=== PATIENT | female | born 1970 | race Caucasian/White ===

== ENCOUNTER 2020-01-19 15:07 | Emergency (ER) | payer MEDICAID ==
--- NOTE | 2020-01-19 15:49 | EDM.PDOC ---
ED HPI GENERAL MEDICAL PROBLEM - General Stated Complaint: achy Time Seen by Provider: 01/19/20 15:07 Source of Information: Reports: Patient History Limitations: Reports: No Limitations - History of Present Illness INITIAL COMMENTS - FREE TEXT/NARRATIVE: Pt. presents to ER with complaints of sinus congestion, fever, ear fullness, and facial pain for the past several days. She states that she has been having issues with generalized congestion for the past several weeks, and states that the facial pain and escalation in symptoms started about 4 days ago. Pt. has a longstanding history of what sounds like allergic rhinitis. She states that she has been taking antihistamines and has been using inhaled nasal corticosteroid but states "it never works". She states that she has not had a flu shot. No nausea, vomiting, or diarrhea. 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 Pt. states that she is a non-smoker. Pt. has been in to clinic approx. 3 times since September and treated for acute sinus infection. She states that most of the time the medications havent worked. She has not seen ENT or asphalt paving superintendent. She states that her symptoms often worsen in the early spring, but she states that the fever and facial pain is new. Onset: Today Onset Date: 01/15/20 Location: Reports: Head, Face Associated Symptoms: Reports: Cough, Headaches, Malaise. Denies: Confusion, Chest Pain Treatments PUBLIC RELATIONS STUDIES DIRECTOR: Reports: Acetaminophen, NSAIDS, Other (see below) ( antihistimines, nasal steroids, decongestants, none of which work.) - Related Data Allergies Allergy/AdvReac Type Severity Reaction Status Date / Time No Known Allergies Allergy Verified 03/12/15 12:33 Home Meds: Home Meds . [No Known Home Meds] 03/12/15 [History] ED ROS GENERAL - Review of Systems Review Of Systems: See Below Constitutional: Reports: No Symptoms HEENT: Reports: Rhinitis, Sinus Problem, Throat Pain, Other (ear fullness) Respiratory: Reports: Cough. Denies: Shortness of Breath, Wheezing, Sputum Cardiovascular: Reports: No Symptoms Endocrine: Reports: No Symptoms GI/Abdominal: Reports: No Symptoms : Reports: No Symptoms Musculoskeletal: Reports: No Symptoms Skin: Reports: No Symptoms Neurological: Reports: No Symptoms Psychiatric: Reports: No Symptoms Hematologic/Lymphatic: Reports: No Symptoms Immunologic: Reports: No Symptoms ED EXAM, GENERAL - Physical Exam Exam: See Below Exam Limited By: No Limitations General Appearance: Alert, WD/WN, No Apparent Distress Eye Exam: Bilateral Eye: EOMI, Normal Fundi, Normal Inspection, Periorbital Changes Ears: Normal External Exam, Normal Canal, Hearing Grossly Normal, Normal TMs Ear Exam: Bilateral Ear: Auricle Normal, Canal Normal, TM normal Nose: Normal Inspection, Nasal Tenderness, Nasal Drainage, Other (frontal and maxillary tenderness on palpation. ) Throat/Mouth: Normal Inspection, Normal Lips, Normal Teeth, Normal Gums, Normal Oropharynx, Normal Voice, No Airway Compromise Head: Atraumatic, Normocephalic Neck: Normal Inspection, Supple, Non-Tender, Full Range of Motion Respiratory/Chest: No Respiratory Distress, Lungs Clear, Normal Breath Sounds, No Accessory Muscle Use, Chest Non-Tender Cardiovascular: Normal Peripheral Pulses, Regular Rate, Rhythm, No Edema, No Gallop, No JVD, No Murmur Peripheral Pulses: 4+: Radial (L) Back Exam: Normal Inspection, Full Range of Motion Extremities: Normal Inspection, Normal Range of Motion, Non-Tender, No Pedal Edema, Normal Capillary Refill Neurological: Alert, Oriented, CN II-XII Intact, Normal Cognition, Normal Gait, Normal Reflexes, No Motor/Sensory Deficits Psychiatric: Normal Affect, Normal Mood Skin Exam: Warm, Dry, Intact, Normal Color, No Rash Lymphatic: No Adenopathy Course - Orders/Labs/Meds Orders: Active Orders 24 hr Category Date Time Status INFLUENZA A+B AG SCREEN [RM] Stat Lab 01/19/20 15:27 Ordered Departure - Departure Time of Disposition: 15:57 Disposition: Home, Self-Care 01 Clinical Impression: Sinusitis - Discharge Information - My Orders Last 24 Hours: My Active Orders 01/19/20 15:27 INFLUENZA A+B AG SCREEN [RM] Stat - Assessment/Plan Last 24 Hours: My Active Orders 01/19/20 15:27 INFLUENZA A+B AG SCREEN [RM] Stat Plan: Follow-up in clinic in 10-14 days to ensure resolution of infection. It appears that she is not following up, so it is unclear it the infection as actually clearing. Advised getting a referral to [facility] from Dr. Fletcher. Was started on a course of augmentin and a medrol dose pack. Drink plenty of fluids. Continue with inhaled nasal steroid, antihistimines, and sudafed. All questions were answered.
== END 2020-01-19 16:05 | disposition home or self-care (01) ==
LOC: VM.ED 15:07
DX: J32.9 Chronic sinusitis, unspecified (principal)
CPT/HCPCS: 87804; 87804-59; 99283

== ENCOUNTER 2021-04-27 20:37 | Emergency (ER) | payer MEDICAID ==
[2021-04-27] MEDS ORDERED: Ketorolac 30 MG/ML SDV IVPUSH ONE (21:16)
[2021-04-27] MEDS ORDERED: Sodium Chloride 0.9% 10 ML Syringe FLUSH PRN (21:16)
[2021-04-27] MEDS ORDERED: diphenhydrAMINE 50 MG/ML SDV IVPUSH ONE (21:16)
[2021-04-27] MEDS ORDERED: Lactated Ringers 1,000 ML IV ONE ×2 (21:16→22:31)
[2021-04-27] MEDS ORDERED: Metoclopramide 10 MG/2 ML SDV IVPUSH ONE (21:16)
[2021-04-27 22:04] LABS: CHLORIDE,CL 103 mmol/L (98-107); SODIUM,NA 139 mmol/L (136-145)
[2021-04-27 22:06] LABS: ANION GAP 15.6 mmol/L (5-15)
[2021-04-27] MEDS ORDERED: Take Home: Ondansetron 4 MG Tab.DIS, 2 Tab Pack PO ONE (23:25)
--- NOTE | 2021-04-27 23:25 | EDM.PDOC ---
ED HPI GENERAL MEDICAL PROBLEM - General Chief Complaint: Headache Stated Complaint: HEADACHE FOR OVER A DAY Time Seen by Provider: 04/27/21 22:50 Source of Information: Reports: Patient History Limitations: Reports: No Limitations - History of Present Illness INITIAL COMMENTS - FREE TEXT/NARRATIVE: Patient presents to the emergency department today with about a 24-hour history of nausea vomiting diarrhea and subsequently developed a migraine. This patient on 04-26-21 developed nausea and vomiting multiple bouts at home as well as multiple diarrhea stools. She has not been on any antibiotics recently. She has no abdominal pain. She has not had any travel outside of the norm for her. There is been no blood in her diarrhea. She has had about 5-6 watery stools at home. She does have some abdominal cramping prior to a bowel movement but otherwise she has no abdominal pain. She does have a history of migraines and after the nausea vomiting and diarrhea she developed a generalized pounding sensation throughout her head. Positive photophobia phonophobia. She was unable to take anything for her headache as she could not keep anything down. She has had no fever no chills. This is not the worst migraine she has had. She has no paresthesias of her upper or lower extremities. No change in the functionality of her upper or lower extremities. No change in her visual acuity. No floaters or flashers. No recent falls head trauma or injury. No neck pain. She has no chest pain no shortness of breath or difficulty breathing. No weakness dizziness lightheadedness or syncope. No palpitations. No Covid exposure no Covid symptoms. She has no hematuria dysuria or urinary frequency. No flank pain. Headache Pain Score (Numeric/FACES): 8 - Related Data Allergies Allergy/AdvReac Type Severity Reaction Status Date / Time No Known Allergies Allergy Verified 01/19/20 16:27 Home Meds: Home Meds Ondansetron [Ondansetron ODT] 4 mg PO TID PRN #9 tab.ioanadis 04/27/21 [Rx] Past Medical History - Past Health History Medical/Surgical History: Denies Medical/Surgical History Social & Family History - Family History Family Medical History: No Pertinent Family History - Tobacco Use Tobacco Use Status *Q: Never Tobacco User Second Hand Smoke Exposure: No - Recreational Drug Use Recreational Drug Use: No ED ROS GENERAL - Review of Systems Review Of Systems: Comprehensive ROS is negative, except as noted in HPI. - Physical Exam Exam: See Below Text/Narrative:: The lights are dimmed when I enter the room. She is resting quietly on the cot with her eyes closed. Exam Limited By: No Limitations General Appearance: Alert, WD/WN Eye Exam: Bilateral Eye: EOMI, PERRL Ears: Normal External Exam, Normal TMs Nose: Normal Inspection, Normal Mucosa, No Blood Throat/Mouth: Normal Inspection, Normal Lips, Normal Oropharynx, Normal Voice Head Exam: Atraumatic, Normocephalic Neck: Normal Inspection, Supple, Non-Tender, Full Range of Motion Respiratory/Chest: No Respiratory Distress, Lungs Clear, Normal Breath Sounds, No Accessory Muscle Use, Chest Non-Tender Cardiovascular: Normal Peripheral Pulses, Regular Rate, Rhythm, No Murmur GI/Abdominal: Normal Bowel Sounds, Soft, Non-Tender, No Distention, No Mass (Female) Exam: Deferred Rectal (Female) Exam: Deferred Neuro Exam (Abbreviated): Alert, Oriented, CN II-XII Intact, Normal Cognition, Normal Reflexes, No Motor/Sensory Deficits Back Exam: Normal Inspection, Full Range of Motion Extremities: Normal Inspection (Moves all extremities strong and equal to command), Normal Range of Motion, No Pedal Edema, Normal Capillary Refill Psychiatric: Normal Affect, Normal Mood Skin Exam: Warm, Dry, Intact, Normal Color, No Rash Course - Vital Signs Last Recorded V/S: Last Vital Signs Temp 97.9 F 04/27/21 20:40 Pulse 82 04/27/21 20:40 Resp 12 04/27/21 20:40 BP 144/97 H 04/27/21 20:40 Pulse Ox 94 L 04/27/21 20:40 - Orders/Labs/Meds Orders: Active Orders 24 hr Category Date Time Status CULTURE URINE [RM] Stat Lab 04/27/21 23:10 Results Peripheral IV Insertion Adult [OM.PC] Stat Oth 04/27/21 21:16 Ordered Labs: Laboratory Tests 04/27/21 04/27/21 04/27/21 Range/Units 20:50 20:50 21:45 WBC 9.2 (4.0-10.0) x10^3/uL RBC 4.91 (4.00-5.50) x10^6/uL Hgb 15.4 (12.0-16.0) g/dL Hct 44.2 (33.0-47.0) % MCV 90.0 (78.0-93.0) fL MCH 31.4 (26.0-32.0) pg MCHC 34.8 (32.0-36.0) g/dL RDW Coeff of Keegan 12.7 (10.0-15.0) % Plt Count 268 (130-400) x10^3/uL Neut % (Auto) 82.5 H (50.0-80.0) % Lymph % (Auto) 10.9 L (25.0-50.0) % [place] % (Auto) 6.1 (2.0-11.0) % Eos % (Auto) 0.3 (0.0-4.0) % Baso % (Auto) 0.2 (0.2-1.2) % Sodium 139 (136-145) mmol/L Potassium 3.6 (3.5-5.1) mmol/L Chloride 103 (98-107) mmol/L Carbon Dioxide 24 (21-32) mmol/L Anion Gap 15.6 H (5-15) mmol/L BUN 17 (7-18) mg/dL Creatinine 0.9 (0.55-1.02) mg/dL Est Cr Clr Drug Dosing TNP Estimated GFR (MDRD) > 60 Glucose 109 H (70-99) mg/dL Calcium 8.4 L (8.5-10.1) mg/dL Corrected Calcium 8.6 (8.5-10.1) mg/dL Magnesium 2.2 (1.8-2.4) mg/dL Total Bilirubin 0.5 (0.2-1.0) mg/dL AST 19 (15-37) U/L ALT 28 (14-59) U/L Alkaline Phosphatase 107 (46-116) U/L Total Protein 7.5 (6.4-8.2) g/dL Albumin 3.7 (3.4-5.0) g/dL Globulin 3.8 Albumin/Globulin Ratio 0.97 Urine Color (YELLOW) Urine Appearance (CLEAR) Urine pH (5.0-8.0) Ur Specific [place] Urine Protein (NEGATIVE) mg/dL Urine Glucose (UA) (NEGATIVE) mg/dL Urine Ketones (NEGATIVE) mg/dL Urine Occult Blood (NEGATIVE) Urine Nitrite (NEGATIVE) Urine Bilirubin (NEGATIVE) Urine Urobilinogen (0.2) EU/dL Ur Leukocyte Esterase (NEGATIVE) Urine RBC (NOT SEEN) /HPF Urine WBC (NOT SEEN) /HPF Ur Squamous Epith Cells (NOT SEEN) /HPF Urine Bacteria (NOT SEEN) /HPF Urine Mucus (NOT SEEN) /LPF SARS CoV-2 RNA Rapid RAPHAEL Negative (NEGATIVE) 04/27/21 Range/Units 23:10 WBC (4.0-10.0) x10^3/uL RBC (4.00-5.50) x10^6/uL Hgb (12.0-16.0) g/dL Hct (33.0-47.0) % MCV (78.0-93.0) fL MCH (26.0-32.0) pg MCHC (32.0-36.0) g/dL RDW Coeff of Keegan (10.0-15.0) % Plt Count (130-400) x10^3/uL Neut % (Auto) (50.0-80.0) % Lymph % (Auto) (25.0-50.0) % [place] % (Auto) (2.0-11.0) % Eos % (Auto) (0.0-4.0) % Baso % (Auto) (0.2-1.2) % Sodium (136-145) mmol/L Potassium (3.5-5.1) mmol/L Chloride (98-107) mmol/L Carbon Dioxide (21-32) mmol/L Anion Gap (5-15) mmol/L BUN (7-18) mg/dL Creatinine (0.55-1.02) mg/dL Est Cr Clr Drug Dosing Estimated GFR (MDRD) Glucose (70-99) mg/dL Calcium (8.5-10.1) mg/dL Corrected Calcium (8.5-10.1) mg/dL Magnesium (1.8-2.4) mg/dL Total Bilirubin (0.2-1.0) mg/dL AST (15-37) U/L ALT (14-59) U/L Alkaline Phosphatase (46-116) U/L Total Protein (6.4-8.2) g/dL Albumin (3.4-5.0) g/dL Globulin Albumin/Globulin Ratio Urine Color Light yellow (YELLOW) Urine Appearance Clear (CLEAR) Urine pH 5.5 (5.0-8.0) Ur Specific [place] 1.015 Urine Protein Negative (NEGATIVE) mg/dL Urine Glucose (UA) Negative (NEGATIVE) mg/dL Urine Ketones Negative (NEGATIVE) mg/dL Urine Occult Blood Negative (NEGATIVE) Urine Nitrite Negative (NEGATIVE) Urine Bilirubin Negative (NEGATIVE) Urine Urobilinogen 0.2 (0.2) EU/dL Ur Leukocyte Esterase Trace H (NEGATIVE) Urine RBC Not seen (NOT SEEN) /HPF Urine WBC 0-5 (NOT SEEN) /HPF Ur Squamous Epith Cells Rare (NOT SEEN) /HPF Urine Bacteria Not seen (NOT SEEN) /HPF Urine Mucus Not seen (NOT SEEN) /LPF SARS CoV-2 RNA Rapid RAPHAEL (NEGATIVE) Meds: Medications Discontinued Medications Generic Name Dose Route Start Last Admin Trade Name Freq PRN Reason Stop Dose Admin Diphenhydramine HCl 25 mg 04/27/21 21:16 04/27/21 21:28 Diphenhydramine 50 Mg/Ml Sdv IVPUSH 04/27/21 21:17 25 mg ONETIME ONE Administration Lactated Ringer's 1,000 mls @ 999 mls/hr 04/27/21 21:16 04/27/21 20:50 Ringers, Lactated IV 04/27/21 22:16 999 mls/hr ONETIME ONE Administration Lactated Ringer's 1,000 mls @ 999 mls/hr 04/27/21 22:31 04/27/21 22:30 Ringers, Lactated IV 04/27/21 23:31 999 mls/hr ONETIME ONE Administration Ketorolac Tromethamine 30 mg 04/27/21 21:16 04/27/21 21:27 Ketorolac 30 Mg/Ml Sdv IVPUSH 04/27/21 21:17 30 mg ONETIME ONE Administration Metoclopramide HCl 10 mg 04/27/21 21:16 04/27/21 21:28 Metoclopramide 10 Mg/2 Ml Sdv IVPUSH 04/27/21 21:17 10 mg ONETIME ONE Administration Ondansetron HCl 1 packet 04/27/21 23:25 04/27/21 23:29 Take Home: Ondansetron 4 Mg Tab.Dis, 2 Tab Pack PO 04/27/21 23:26 1 packet ONETIME ONE Administration Sodium Chloride 10 ml 04/27/21 21:16 Sodium Chloride 0.9% 10 Ml Syringe FLUSH ASDIRECTED PRN Keep Vein Open - Re-Assessments/Exams Free Text/Narrative Re-Assessment/Exam: IV was established labs are drawn. 1 L LR wide open. Benadryl 25 mg IV push. Ketorolac 30 mg IV push. Reglan 10 mg IV push. CBC which is rather unremarkable with a WBC of 9.2, hemoglobin 15.4, platelet 268. CMP with an anion gap of 15.6 glucose of 109 normal liver enzymes. Her glucose is 109 Urinalysis is negative for nitrites trace leukocytes with U RBCs not seen in you WBCs normal at 0-5. Covid screen is negative. After the above therapy the patient relates that her headache is about 50% better. She was given second liter of LR which complete resolution of her headache. This is really the presentation of a viral gastroenteritis that just needs to run its course. We will discharge her home with Zofran and oral hydration. Her migraine is most likely due to dehydration and the stress from her gastroe nteritis. We get her GI symptoms under control her migraine should do well. Rest for the next couple of days. Recheck if anything new or worse. Discharge instructions as below are explained to the patient she was comfortable with this plan and her questions were answered. Departure - Departure Time of Disposition: 23:21 Disposition: Home, Self-Care 01 Clinical Impression: Gastroenteritis Migraine Qualifiers: Migraine type: unspecified Status migrainosus presence: without status migrainosus Intractability: not intractable Qualified Code(s): G43.909 - Migraine, unspecified, not intractable, without status migrainosus - Discharge Information Prescriptions: Ondansetron [Ondansetron ODT] 4 mg PO TID PRN #9 tab.rapdis PRN Reason: Nausea/Vomiting Instructions: Viral Gastroenteritis, Adult, [id number], Diarrhea, Adult, [id number] Referrals: Yessy Fletcher DO [Primary Care Provider] - Forms: ED Department Discharge Additional Instructions: Home tonight. Rest the next few days. Zofran ODT 1 tablet three times a day as needed for nausea. Starter pack from the ED given and RX sent to your pharmacy. Small frequent sips of water or electrolyte containing materials such as Gatorade and or Powerade. If nausea or vomting reoccurs, stop oral intake for an hour and start off slowly again. No dairy products other than yogurt until symptom free for 48 hrs. Simple diet bland food. Nothing spicy or rich or fatty. Return to the ED if new or worsening symptoms. Follow up with PCP in the next 4-6 days if not improving sooner if worse. Sepsis Event Note (ED) - Evaluation Sepsis Screening Result: No Definite Risk - My Orders Last 24 Hours: My Active Orders 04/27/21 21:16 Peripheral IV Insertion Adult [OM.PC] Stat 04/27/21 23:10 CULTURE URINE [RM] Stat - Assessment/Plan Last 24 Hours: My Active Orders 04/27/21 21:16 Peripheral IV Insertion Adult [OM.PC] Stat 04/27/21 23:10 CULTURE URINE [RM] Stat
== END 2021-04-27 23:30 | disposition home or self-care (01) ==
LOC: VM.ED 20:37
DX: K52.9 Noninfective gastroenteritis and colitis, unspecified (principal); G43.909 Migraine, unspecified, not intractable, without status migrainosus; Z20.822 Contact with and (suspected) exposure to COVID-19
CPT/HCPCS: 80053; 81001; 83735; 85025; 87086; 96361; 96374; 96375; 99284; 99284-25; A9270-GY; J1200; J1885; J2765; J7120; U0002

== ENCOUNTER 2021-08-18 12:24 | Emergency (ER) | payer MEDICAID ==
--- NOTE | 2021-08-18 13:36 | EDM.PDOC ---
ED HPI GENERAL MEDICAL PROBLEM - General Chief Complaint: Genitourinary Problem Stated Complaint: POSSIBLE UTI Time Seen by Provider: 08/18/21 13:10 Source of Information: Reports: Patient History Limitations: Reports: No Limitations - History of Present Illness INITIAL COMMENTS - FREE TEXT/NARRATIVE: aZyda is a 50 year old female who presents with lower quadrant abdominal and back pain. STates has gradually been worsening over the last day or so. Now having burning with urination as well. Concerned could be a kidney infection. Did note blood when she voids. Feels bloated. Pain radiates mostly in the suprapubic area to her back. No nausea/vomiting or diarrhea. No fevers. No recent injury. Last LMP 2 weeks ago. Onset: Gradual Duration: Day(s):, Getting Worse Location: Reports: Abdomen, Back Quality: Reports: Ache, Burning Severity: Moderate Associated Symptoms: Reports: Malaise. Denies: Confusion, Chest Pain, Cough, Fever/Chills, Headaches, Loss of Appetite, Nausea/Vomiting, Shortness of Breath - Related Data Allergies Allergy/AdvReac Type Severity Reaction Status Date / Time No Known Allergies Allergy Verified 08/18/21 13:40 Home Meds: Home Meds Ondansetron [Ondansetron ODT] 4 mg PO TID PRN #9 tab.rapdis 04/27/21 [Rx] Past Medical History - Past Health History Medical/Surgical History: Denies Medical/Surgical History Social & Family History - Family History Family Medical History: No Pertinent Family History - Tobacco Use Tobacco Use Status *Q: Unknown Ever Used Tobacco ED ROS GENERAL - Review of Systems Review Of Systems: See Below Constitutional: Reports: Malaise. Denies: Fever, Chills, Weakness, Fatigue, Decreased Appetite HEENT: Denies: Ear Pain, Rhinitis, Sinus Problem, Throat Pain, Vertigo Respiratory: Denies: Shortness of Breath, Cough Cardiovascular: Denies: Chest Pain, Edema, Lightheadedness Endocrine: Reports: Fatigue GI/Abdominal: Reports: Abdominal Pain. Denies: Constipation, Diarrhea, Decreased Appetite, Nausea, Vomiting : Reports: Dysuria, Frequency, Hematuria Musculoskeletal: Reports: Back Pain Skin: Reports: No Symptoms Neurological: Reports: No Symptoms ED EXAM, GI/ABD - Physical Exam Exam: See Below Exam Limited By: No Limitations General Appearance: Alert, WD/WN, No Apparent Distress Ears: Normal External Exam, Normal TMs Nose: Normal Inspection, Normal Mucosa, No Blood Throat/Mouth: Normal Inspection, Normal Oropharynx Head: Normocephalic Neck: Normal Inspection, Supple, Non-Tender Respiratory/Chest: No Respiratory Distress, Lungs Clear, Normal Breath Sounds Cardiovascular: Regular Rate, Rhythm GI/Abdominal Exam: Normal Bowel Sounds, Soft, Tender (bilateral lower quadrants. No CVA tenderness.) Back Exam: Normal Inspection, Full Range of Motion. No: CVA Tenderness (L), CVA Tenderness (R) Extremities: Normal Inspection, No Pedal Edema Neurological: Alert, Oriented Skin Exam: Warm, Dry Course - Orders/Labs/Meds Labs: Laboratory Tests 08/18/21 08/18/21 08/18/21 Range/Units 13:02 13:42 13:42 WBC 6.5 (4.0-10.0) x10^3/uL RBC 4.53 (4.00-5.50) x10^6/uL Hgb 14.2 (12.0-16.0) g/dL Hct 41.5 (33.0-47.0) % MCV 91.6 (78.0-93.0) fL MCH 31.3 (26.0-32.0) pg MCHC 34.2 (32.0-36.0) g/dL RDW Coeff of Keegan 13.0 (10.0-15.0) % Plt Count 266 (130-400) x10^3/uL Immature Gran % (Auto) 0.20 (0.00-0.43) % Neut % (Auto) 83.2 H (50.0-80.0) % Lymph % (Auto) 9.6 L (25.0-50.0) % [place] % (Auto) 6.5 (2.0-11.0) % Eos % (Auto) 0.2 (0.0-4.0) % Baso % (Auto) 0.3 (0.2-1.2) % Neut # (Auto) 5.4 (1.8-7.7) x10^3/uL Lymph # (Auto) 0.6 L (1.0-4.8) x10^3/uL [place] # (Auto) 0.4 (0.0-0.8) x10^3/uL Eos # (Auto) 0.0 (0.0-0.5) x10^3/uL Baso # (Auto) 0.0 (0.0-0.2) x10^3/uL Immature Gran # (Auto) 0.01 (0.00-0.07) x10^3/uL Sodium 141 (136-145) mmol/L Potassium 4.5 (3.5-5.1) mmol/L Chloride 103 (98-107) mmol/L Carbon Dioxide 30 (21-32) mmol/L Anion Gap 12.5 (5-15) mmol/L BUN 13 (7-18) mg/dL Creatinine 0.9 (0.55-1.02) mg/dL Est Cr Clr Drug Dosing TNP Estimated GFR (MDRD) > 60 Glucose 96 (70-99) mg/dL Calcium 7.8 L (8.5-10.1) mg/dL Corrected Calcium 8.1 L (8.5-10.1) mg/dL Total Bilirubin 0.3 (0.2-1.0) mg/dL AST 24 (15-37) U/L ALT 42 (14-59) U/L Alkaline Phosphatase 99 (46-116) U/L C-Reactive Protein < 0.2 (<=0.9) mg/dL Total Protein 6.7 (6.4-8.2) g/dL Albumin 3.6 (3.4-5.0) g/dL Globulin 3.1 Albumin/Globulin Ratio 1.16 Urine Color Light yellow (YELLOW) Urine Appearance Slightly cloudy H (CLEAR) Urine pH 6.5 (5.0-8.0) Ur Specific [place] 1.025 Urine Protein Negative (NEGATIVE) mg/dL Urine Glucose (UA) Negative (NEGATIVE) mg/dL Urine Ketones Negative (NEGATIVE) mg/dL Urine Occult Blood Moderate H (NEGATIVE) Urine Nitrite Negative (NEGATIVE) Urine Bilirubin Negative (NEGATIVE) Urine Urobilinogen 0.2 (0.2) EU/dL Ur Leukocyte Esterase Negative (NEGATIVE) Urine RBC 50-75 H (NOT SEEN) /HPF Urine WBC 0-5 (NOT SEEN) /HPF Ur Squamous Epith Cells Not seen (NOT SEEN) /HPF Urine Bacteria Not seen (NOT SEEN) /HPF Urine Mucus Rare H (NOT SEEN) /LPF - Re-Assessments/Exams Free Text/Narrative Re-Assessment/Exam: 08/18/21 14:12 Labs, urine all unremarkable. No evidence of infection. Xray unremarkable. Discussed with patient. Due to menorrhagia, recommend she follow up with her primary and consider a pelvic ultrasound due to bleeding and cramping at this time without evidence of infection. Departure - Departure Time of Disposition: 14:13 Disposition: Home, Self-Care 01 Condition: Good Clinical Impression: Menorrhagia with irregular cycle - Discharge Information *PRESCRIPTION DRUG MONITORING PROGRAM REVIEWED*: No *COPY OF PRESCRIPTION DRUG MONITORING REPORT IN PATIENT ALOK: No Instructions: Menorrhagia, [id number] Referrals: Yessy Fletcher, [Primary Care Provider] - Forms: ED Department Discharge Additional Instructions: 1. Push fluids 2. Ibuprofen 400-600 mg every 6 hours for discomfort 3. Warm pack to abdomen 4. Follow up with primary care provider and discuss possible pelvic ultrasound 5. Call or return with any increasing symptoms
--- NOTE | 2021-08-18 14:00 | CR ---
[id number] RAD/RAD Abd Flat and Upright 2V EXAM: RAD Abd Flat and Upright 2V INDICATION: ABD PAIN COMPARISON: None. Discussion/Impression: Unobstructed bowel gas pattern. No radiographically evident pneumoperitoneum. Moderate colonic stool volume in the cecum and ascending segment. Correlate for constipation. Dayne Gloria MD 08/18/21 [id number] Thank you for allowing us to participate in the care of your patient.
[2021-08-18 14:08] LABS: ANION GAP 12.5 mmol/L (5-15); CHLORIDE,CL 103 mmol/L (98-107); SODIUM,NA 141 mmol/L (136-145)
== END 2021-08-18 14:23 | disposition home or self-care (01) ==
LOC: VM.ED 12:24
DX: N92.1 Excessive and frequent menstruation with irregular cycle (principal)
CPT/HCPCS: 36415; 74019; 80053; 81001; 85025; 86140; 99283; 99284-25

== ENCOUNTER 2021-08-25 17:52 | Emergency (ER) | payer MEDICAID ==
[2021-08-25] MEDS ORDERED: predniSONE 20 MG Tab PO ONE (18:17)
[2021-08-25] MEDS ORDERED: Oxymetazoline 0.05% Nasal Spray 30 ML Bottle NAS ONE (18:17)
--- NOTE | 2021-08-25 18:25 | EDM.PDOC ---
ED HPI GENERAL MEDICAL PROBLEM - General Stated Complaint: RESPIRATORY Time Seen by Provider: 08/25/21 17:55 Source of Information: Reports: Patient History Limitations: Reports: No Limitations - History of Present Illness INITIAL COMMENTS - FREE TEXT/NARRATIVE: Patient comes emergency department today from home with complaints of a frontal sinus congestion headache. This patient typically has 1-2 flares a year and this is a very typical time for her to get severe sinus congestion and headache. She typically uses Flonase once a day. She does not complete any nasal rinses. She has no history of diabetes. For the last 3 to 4 days she has had severe sinus congestion pressure without drainage frontal headache. She has no tentorial headache. No weakness dizziness lightheadedness. No visual acuity changes. No paresthesias of her upper or lower extremities. She has an itchy scratchy irritated throat. No cough or congestion. No fever no chills. No shortness of breath or difficulty breathing. No loss of taste or smell. - Related Data Allergies Allergy/AdvReac Type Severity Reaction Status Date / Time No Known Allergies Allergy Verified 08/18/21 13:40 Home Meds: Home Meds Ondansetron [Ondansetron ODT] 4 mg PO TID PRN #9 tab.rapdis 04/27/21 [Rx] predniSONE [Prednisone] 60 mg PO DAILY 4 Days #12 tablet 08/25/21 [Rx] Past Medical History - Past Health History Medical/Surgical History: Denies Medical/Surgical History Social & Family History - Family History Family Medical History: No Pertinent Family History ED ROS ENT - Review of Systems Review Of Systems: Comprehensive ROS is negative, except as noted in HPI. ED EXAM, ENT - Physical Exam Exam: See Below Exam Limited By: No Limitations General Appearance: Alert, WD/WN, No Apparent Distress Ears: Normal External Exam, Normal Canal, Normal TMs Nose: Clear Rhinorrhea, Nasal Swelling, Injected Turbinates, Other (There is quite a bit of hypertrophy of the bilateral turbinates. Very narrow airway spaces.) Mouth/Throat: Normal Inspection (Normal inspection in the anterior pharynx other than posterior pharynx with some cobblestoning and pink salmon-colored vesicles consistent with postnasal drip.), Normal Teeth Head: Atraumatic, Normocephalic Neck: Normal Inspection, Supple, Non-Tender, Full Range of Motion Respiratory/Chest: No Respiratory Distress, Lungs Clear, Normal Breath Sounds, No Accessory Muscle Use, Chest Non-Tender Cardiovascular: Normal Peripheral Pulses, Regular Rate, Rhythm Extremities: Normal Inspection, No Pedal Edema Neurological: Alert, Oriented, Normal Cognition, No Motor/Sensory Deficits Psychiatric: Normal Affect, Normal Mood Skin: Warm, Dry, Intact, Normal Color Lymphatic: No Adenopathy Course - Orders/Labs/Meds Meds: Medications Discontinued Medications Generic Name Dose Route Start Last Admin Trade Name Sabino PRN Reason Stop Dose Admin Oxymetazoline HCl 1 ml 08/25/21 18:17 Oxymetazoline 0.05% Nasal [place] 30 Ml Bottle BENITO 08/25/21 18:18 ONETIME ONE Prednisone 60 mg 08/25/21 18:17 Prednisone 20 Mg Tab PO 08/25/21 18:18 ONETIME ONE - Re-Assessments/Exams Free Text/Narrative Re-Assessment/Exam: 08/25/21 18:27 I discussed at length with the patient the best management for this is nasal rinses as well as steroids there is no indication for antibiotics at this time. We will aggressively treat her with prednisone nasal rinses oxymetazoline for a short course and increase her Flonase for the next week. She is comfortable with this plan and her questions were answered. Departure - Departure Time of Disposition: 18:19 Disposition: Home, Self-Care 01 Clinical Impression: Acute sinusitis Qualifiers: Sinusitis location: frontal Recurrence: non-recurrent Qualified Code(s): J01.10 - Acute frontal sinusitis, unspecified - Discharge Information Instructions: Sinusitis, Adult, [id number], How to Perform a Sinus Rinse, [id number] Referrals: Yessy Fletcher DO [Primary Care Provider] - Additional Instructions: Afrin/Oxymetazoline 2 sprays each nostril twice daily for no more than 2 days. DO NOT USE MORE THAN 2 DAYS. 10 minutes later. OTC Nasal rinse like Netti Pot or other OTC nasal rinse. Continue until symptoms resolve and may continue to prevent acute sinusitis as well. 10 minutes later. Flonase, OTC, 1 spray each nostril twice daily for a week and then 1 spray each nostril daily. Continue until symptoms resolve and may continue to prevent symptoms in the future. Make sure and drink plenty of fluids. Prednisone 60mg daily for the next 5 days. First dose given in the ED and RX sent to [facility]. Tylenol and or Ibuprofen as needed for pain. Also OTC Benadryl and or Zyrtec/Paula/Xyzal or systemic symptoms. Return to the ED if new or worsening symptoms. Follow up with PCP in the next 10 days if not improving sooner if worse.
== END 2021-08-25 18:39 | disposition home or self-care (01) ==
LOC: VM.ED 17:52
DX: J01.10 Acute frontal sinusitis, unspecified (principal)
CPT/HCPCS: 99283; A9270-GY; J7512